=== PATIENT | male | born 1960 | race Hispanic/Latino ===

== ENCOUNTER 2017-10-21 18:54 | Observation (INO) | payer OTHER ==
[~2017-10-21] VITALS: Ht 165.1 cm; Wt 85.7 kg
[2017-10-21] MEDS ORDERED: LOSARTAN POTAS100 MG PO (20:22)
[2017-10-21] MEDS ORDERED: AVODART0.5 MG PO (20:22)
[2017-10-21] MEDS ORDERED: ACTOS45 MG PO (20:22)
[2017-10-21] MEDS ORDERED: METFORMIN HCL500 MG PO (20:22)
[2017-10-21] MEDS ORDERED: GLIMEPIRIDE2 MG PO (20:22)
[2017-10-21] MEDS ORDERED: ASPIR 8181 MG PO (20:22)
[2017-10-21] MEDS ORDERED: ATORVASTATIN CA20 MG PO (20:22)
[2017-10-21] MEDS ORDERED: ONDANSETRON HCL INJ 2 MG/ML VIAL IV PRN (20:45)
[2017-10-21] MEDS ORDERED: NITROGLYCERIN 0.4 MG SUBL SL PRN (20:45)
[2017-10-21] MEDS ORDERED: ONDANSETRON HCL 4 MG ORAL DISINTEGRATING TAB PO PRN (20:45)
[2017-10-21] MEDS ORDERED: ASPIRIN 81 MG CHEW TAB PO ONE (20:45)
[2017-10-21] MEDS ORDERED: NITROGLYCERIN 2% OINT 1 GM PKT TOP ONE (23:15)
[2017-10-22] VITALS (10 sets, daily range): BP systolic 124–178; BP diastolic 69–77
--- OUTSIDE RECORDS SUMMARY | 2017-10-22 01:01 | XMS REPORT ---
Author Author [facility], [place] Address Unknown Phone Unavailable Care Team Providers Care Bar Turner Name Role Phone Unavailable Unavailable Problems This patient has no known problems. Allergies, Adverse Reactions, Alerts This patient has no known allergies or adverse reactions. Medications This patient has no known medications. Encounters Start Date/Time End Date/Time Encounter Type Admission Type Attending Clinicians Care Facility Care Department Encounter ID 2017-10-20 01:33:00 2017-10-20 01:33:00 Emergency [facility] [id number]
[2017-10-22] MEDS ORDERED: LOSARTAN POTASSIUM 25 MG TAB PO ONE (01:30)
[2017-10-22] MEDS: ACETAMINOPHEN/CODEINE 300MG - 30MG TAB PO PRN ×3 (02:07→08:10)
[2017-10-22 07:08] LABS: CREATINE KINASE 148 IU/L (30-200)
[2017-10-22 07:53] LABS: CHOL/HDL RATIO 3.2 (3.9-4.7)
[2017-10-22] MEDS: GLIMEPIRIDE 2 MG TAB PO SCH ×2 (08:37→17:37)
[2017-10-22] MEDS: METFORMIN HCL 500 MG TAB PO SCH ×2 (08:37→17:37)
[2017-10-22] MEDS: ASPIRIN 325 MG TAB EC PO SCH (08:38)
[2017-10-22] MEDS: LOSARTAN POTASSIUM 100 MG TAB PO SCH (08:38)
[2017-10-22] MEDS: ASPIRIN 81 MG CHEW TAB PO SCH (08:38)
[2017-10-22] MEDS: PIOGLITAZONE HCL 45 MG TAB PO SCH (08:38)
[2017-10-22] MEDS: DUTASTERIDE 0.5 MG CAP PO SCH (09:52)
[2017-10-22] MEDS ORDERED: ASPIRIN 81 MG CHEW TAB PO ONE (10:45)
[2017-10-22 10:56] LABS: ALANINE AMINOTRANSFERASE 50 IU/L (0-55); ALBUMIN 3.5 g/dL (3.5-5.0); ALKALINE PHOSPHATASE 80 IU/L (40-150); ANION GAP 13.9 mmol/L (8-16); BLOOD UREA NITROGEN 10 mg/dL (7-26); BUN/CREATININE RATIO 12 (6-25); CALCIUM 9.6 mg/dL (8.4-10.2); CARBON DIOXIDE 20 mmol/L (22-29); CHLORIDE 106 mmol/L (98-107); CREATININE, SERUM 0.81 mg/dL (0.72-1.25); EST GLOMERULAR FILTRATION RATE > 60 ML/MIN (60-); GLUCOSE 203 mg/dL (74-118); POTASSIUM 3.9 mmol/L (3.5-5.1); SODIUM 136 mmol/L (136-145)
[2017-10-22 11:18] LABS: FREE THYROXINE INDEX 2.2997 (1.4-3.8); THYROID STIMULATING HORMONE 3.067 uIU/mL (0.350-4.940)
--- NOTE | 2017-10-22 12:12 | Diagnostic Imaging Report ---
PROCEDURE:CHEST 2 VIEWS TECHNIQUE:PA and lateral chest INDICATION:Dizziness COMPARISON:None. FINDINGS: The lungs are clear and symmetrically inflated. No pleural effusions. Normal heart size, mediastinal contour, pulmonary vasculature. Intact skeleton. CONCLUSION: No acute abnormality. Dictated by: Michoacano Hallman M.D. on 10/22/2017 at 12:13 Electronically approved by: Michoacano Hallman M.D. on 10/22/2017 at 12:13
--- NOTE | 2017-10-22 12:45 | Diagnostic Imaging Report ---
History: Dizziness Comparison studies: None Technique: Axial images were obtained from the skull base to the vertex. Coronal and sagittal reconstructions obtained from the axial data. Findings: Scalp/skull: No abnormalities. No fractures, blastic or lytic lesions. Extra-axial spaces: No masses. No fluid collections. Brain sulci: Appropriate for age. Ventricles: Normal in size and configuration. No hydrocephalus. Parenchyma: No abnormal densities. No masses, hemorrhage, acute or chronic cortical vascular insults. Sellar/suprasellar region: No abnormalities Craniocervical junction: Patent foramen magnum. No Chiari one malformation. 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 IMPRESSION: No intracranial abnormalities . Signed by: DR Jhon Levin M.D. on 10/22/2017 12:41 PM
--- NOTE | 2017-10-22 13:04 | History and Physical ---
CLINICAL HISTORY: This is a 56-year-old male admitted in transfer from a satellite emergency room to [facility] because of dizziness and chest pains. According to the patient, he has never had any chest pains until 2 days prior to admission when he noticed 3 hours of chest pain on and off not related to exertion. He also noticed some dizziness, particularly while driving. One day prior to admission, he was feeling better. On the day of admission, he went to see Dr. Austin in his office and was dismissed. He became symptomatic and later presented to the emergency room unit and was transferred to [facility] for hospitalization. PAST MEDICAL HISTORY: Remarkable for diabetes, hypertension, hyperlipidemia as well as prostate hypertrophy. MEDICATIONS: Include: 1. Actos 45 mg per day. 2. Metformin 50 mg b.i.d. 3. Losartan 100 mg daily. 4. Glimepiride 2 mg p.o. daily. 5. Avodart 0.5 mg daily. 6. Atorvastatin 20 mg daily. 7. Aspirin 81 mg daily. PERSONAL AND SOCIAL HISTORY: Denies smoking for the past 15 years. He does drink a lot, 5 drinks per day. FAMILY HISTORY: Brother had bypass surgery. Mother had vaginal hemorrhage and . Father from diabetes. REVIEW OF SYSTEMS: Noncontributory. PHYSICAL EXAMINATION GENERAL: He is alert and coherent. VITAL SIGNS: Stable. CARDIOVASCULAR: Jugular veins are not distended. S1, S2 are regular. There is no appreciable murmur. LUNGS: Clear. ABDOMEN: Soft. Bowel sounds present. EXTREMITIES: No cyanosis, clubbing or edema. LABORATORY STUDIES: Initial cardiac enzymes were negative. IMPRESSION 1. Atypical chest pains, rule out coronary artery disease and myocardial infarction, with slightly inverted T wave in the inferior leads on EKG. 2. Dizziness of undetermined etiology. 3. Diabetes. 4. Hypertension. 5. Hyperlipidemia. 6. Family history of coronary artery disease. 7. Benign prostatic hypertrophy. RECOMMENDATIONS: Stress testing. CT scan of the head. Serial enzyme studies. Repeat EKG. Consider echocardiogram. Job#: [id number] cc:CATA AUSTIN MD
[2017-10-22 14:43] LABS: CREATINE KINASE 115 IU/L (30-200)
[2017-10-22] MEDS ORDERED: ATORVASTATIN 20 MG TAB PO SCH (21:00)
[2017-10-23] VITALS: BP 110/65
[2017-10-23 04:00] VITALS: BP 147/74
[2017-10-23 07:16] LABS: CREATINE KINASE 103 IU/L (30-200)
[2017-10-23 07:44] VITALS: BP 127/80
[2017-10-23] MEDS ORDERED: SODIUM BICARBONATE 650 MG TAB PO ONE (08:45)
[2017-10-23] MEDS: ASPIRIN 81 MG CHEW TAB PO SCH (09:00)
[2017-10-23] MEDS: PIOGLITAZONE HCL 45 MG TAB PO SCH (09:20)
[2017-10-23] MEDS: LOSARTAN POTASSIUM 100 MG TAB PO SCH (09:20)
[2017-10-23] MEDS: ASPIRIN 325 MG TAB EC PO SCH (09:20)
[2017-10-23] MEDS: DUTASTERIDE 0.5 MG CAP PO SCH (09:20)
[2017-10-23] MEDS: GLIMEPIRIDE 2 MG TAB PO SCH (09:20)
[2017-10-23] MEDS: METFORMIN HCL 500 MG TAB PO SCH (09:20)
--- NOTE | 2017-10-23 09:21 | Discharge Summary ---
CLINICAL HISTORY: This is a 56-year-old man, a patient of Dr. Cata Austin. He was admitted in transfer from a freestanding emergency room clinic because of complaints of dizziness and chest pains. Please refer to my previous dictation concerning details of current illness, past medical history, personal and social history, family history, review of systems, physical examination and initial laboratory studies. HOSPITAL COURSE: The patient's initial cardiac enzymes were negative. Repeat enzymes were also negative. TSH was normal. Blood sugar was in the range of 212 to 263. Bicarb was a little bit low at 20. The patient was given oral bicarbonate. Electrolytes were normal. Because of complaints of headaches and dizziness, we did a CT scan of the head which was negative. He underwent stress testing, which was negative. Chest x-ray was negative. It was found that he does not have any acute problem that requires further hospitalization and can be discharged and followed on an outpatient basis. He will see Dr. Cata Austin in 1 week and will see me as needed. DISCHARGE DIAGNOSES 1. Atypical chest pains with low probability of significant coronary artery disease based on negative stress test. 2. Diabetes. 3. Dizziness and headache with negative CT scan of head. 4. Hypertension. 5. Hyperlipidemia. 6. Family history of coronary artery disease. 7. Benign prostatic hypertrophy. 8. Family history of coronary artery disease. The patient will be discharged on his previous medications. He will follow up with Dr. Cata Austin. ADAM WELLS MD Job#: [id number] cc:CATA AUSTIN MD
== END 2017-10-23 09:35 | disposition home or self-care (01) ==
LOC: FSED 18:54 → IMCU 10-22 00:58
PROVIDERS: ADMIT Internal Medicine Cardiovascular Disease; ATTEND Internal Medicine Cardiovascular Disease
DX: R07.89 Other chest pain (principal); R42 Dizziness and giddiness; E11.9 Type 2 diabetes mellitus without complications; E78.5 Hyperlipidemia, unspecified; I10 Essential (primary) hypertension; Z82.49 Family history of ischemic heart disease and other diseases of the circulatory system; N40.0 Benign prostatic hyperplasia without lower urinary tract symptoms; Z83.3 Family history of diabetes mellitus; R51 Headache
CPT/HCPCS: 36415 ×2; 70450; 71046; 80053; 80061; 82550 ×2; 82553 ×2; 82948; 84436; 84443; 84479; 84484 ×2; 85025; 93005 ×3; 93017; 97139; 99284; G0378 ×2

== ENCOUNTER 2019-10-22 03:12 | Emergency (ER) | payer OTHER ==
[~2019-10-22] VITALS: Ht 165.1 cm; Wt 86.2 kg
[~2019-10-22 03:12] MED LIST: ACTOS45 MG PO; ASPIR 8181 MG PO; ATORVASTATIN CA20 MG PO; AVODART0.5 MG PO; GLIMEPIRIDE2 MG PO; LOSARTAN POTAS100 MG PO; METFORMIN HCL500 MG PO
[2019-10-22] MEDS ORDERED: SODIUM CHLORIDE 0.9% 1000ML 1,000 ML ONE (03:54)
[2019-10-22] MEDS ORDERED: SODIUM CHLORIDE 0.9% 1000ML 1,000 ML IV SCH (04:00)
[2019-10-22] MEDS ORDERED: HYDROCHLOROTHIA25 MG PO (04:02)
--- NOTE | 2019-10-22 04:55 | Diagnostic Imaging Report ---
History: Dizziness, high blood pressure. Comparison studies: CT head 10/22/2017 Technique: Axial images were obtained from the skull base to the vertex. Coronal and sagittal reconstructions obtained from the axial data. Dose modulation, iterative reconstruction, and/or weight based adjustment of the mA/kV was utilized to reduce the radiation dose to as low as reasonably achievable. Findings: Scalp/skull: No abnormalities. No fractures, blastic or lytic lesions. Extra-axial spaces: No masses. No fluid collections. Brain sulci: Appropriate for age. Ventricles: Normal in size and configuration. No hydrocephalus. Parenchyma: No abnormal densities. No masses, hemorrhage, acute or chronic cortical vascular insults. Sellar/suprasellar region: No abnormalities Craniocervical junction: Patent foramen magnum. No Chiari one malformation. 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 IMPRESSION: No acute abnormalities . No significant change from previous examination Signed by: DR Jhon Levin M.D. on 10/22/2019 4:52 AM
--- NOTE | 2019-10-22 05:09 | NUR ---
ALL TEST RESULTS COMPLETED. INFORMED. PT BACK TO FROM RESTROOM. NO COMPLAINTS AT THIS TIME.
[2019-10-22 05:20] VITALS: BP 154/71
== END 2019-10-22 05:20 | disposition home or self-care (01) ==
LOC: FSED 03:12
DX: R42 Dizziness and giddiness (principal); G44.89 Other headache syndrome; I10 Essential (primary) hypertension; E11.9 Type 2 diabetes mellitus without complications; Z87.891 Personal history of nicotine dependence
CPT/HCPCS: 70450; 80053; 81003; 84484; 85025; 93005; 99284; J7030

== ENCOUNTER 2024-12-24 17:28 | Emergency (ER) | payer OTHER ==
[~2024-12-24] VITALS: Ht 165.1 cm; Wt 84.5 kg
[~2024-12-24 17:28] MED LIST changes: +HYDROCHLOROTHIA25 MG PO
[2024-12-24] MEDS: ALBUTEROL SULF 0.083% NEB SOLN 3 ML NEB NEB STA (19:20)
[2024-12-24] MEDS: CALCIUM GLUC 1 G/50 ML NACL 50 ML IV ONE (19:21)
[2024-12-24] MEDS: INSULIN REGULAR, HUMAN 100 UNIT/1 ML IV ONE (19:23)
[2024-12-24] MEDS: KETOROLAC TROMETHAMINE 30 MG/ML VIAL IV STA (19:24)
[2024-12-24] MEDS: CYCLOBENZAPRINE HCL 10 MG TAB PO ONE (19:24)
[2024-12-24] MEDS: ACETAMINOPHEN 325 MG TAB PO ONE (19:25)
[2024-12-24] MEDS ORDERED: DEXTROSE 50% SYRINGE 50 ML IV ONE (19:27)
[2024-12-24] MEDS: SODIUM CHLORIDE 0.9% 1000ML 1,000 ML IV SCH (19:27)
[2024-12-24] MEDS: DEXTROSE 25% INJ 10 ML SYR IV ONE (19:29)
[2024-12-24] MEDS: DEXTROSE 50% SYRINGE 50 ML IV STA (19:49)
[2024-12-24 22:50] VITALS: PULSE 62; RESP 18; TEMP 97.6
[2024-12-24 23:18] VITALS: BP 138/64; PULSE 62; RESP 18; TEMP 97.6; O2SAT 99
== END 2024-12-24 23:00 | disposition home or self-care (01) ==
LOC: FSED 17:34
DX: E87.5 Hyperkalemia (principal); I10 Essential (primary) hypertension; E11.40 Type 2 diabetes mellitus with diabetic neuropathy, unspecified; E78.5 Hyperlipidemia, unspecified; E78.00 Pure hypercholesterolemia, unspecified; K21.9 Gastro-esophageal reflux disease without esophagitis
CPT/HCPCS: 36415; 80048; 80053; 82948; 83735; 85025; 93005; 99284; J1885; J7030; J7799